=== PATIENT | female | born 1930 | race Caucasian/White ===

== ENCOUNTER 2016-07-02 15:26 | Emergency (ER) | payer MEDICARE, OTHER ==
--- NOTE | ~2016-07-02 | ER ---
PATIENT'S NAME: TORREI FERRELL [facility] AGE: 86 Y [address] ROOM: [place] [address] LOCATION: [facility] ADMIT DATE: 07/02/2016 ER/Outpatient Report DISCHARGE DATE: 07/02/2016 FAMILY PHYSICIAN: Geoff Patterson MD ATTENDING PHYSICIAN: Elfego Robert Time of Arrival: 1526 hours. Time of Evaluation: 1545 hours. CHIEF COMPLAINT: Left leg injury from ground level fall. HISTORY OF PRESENT ILLNESS: This is an 86-year-old female, who presents to the ER, who states that she was getting up out of a chair, she tripped and fell, and landed onto her left side. She states she felt like she maybe twisted her ankle and she is having some pain on the lateral portion of her ankle. She had a little bit in her left knee, but that has since resolved and now also has some pain in her left hip and lateral side of her thigh. She has noticed a large hematoma grow in the thigh area. She denies hitting her head. She has no neck or back pain. No other problems at this time. ALLERGIES: PLEASE SEE MEDICATION LIST NURSE'S NOTES. MEDICATIONS: Please see medication list nurse's notes. PAST MEDICAL HISTORY: She has a history of lymphoma. SOCIAL HISTORY: Denies smoking, drug, or alcohol use. REVIEW OF SYSTEMS: A 10-point review of systems was completed and was negative with the exception of those discussed in the HPI. PHYSICAL EXAMINATION: VITAL SIGNS: Weight 47 kg taken, blood pressure is 128/62, pulse 90, respirations 20, temperature 96.3 degrees tympanically, and saturations 98% on room air. [place] Coma score is 15. GENERAL: Alert, calm, well-developed, 86-year-old, in no acute distress. The patient was able to stand from the wheelchair pivot and sit in the bed with no difficulties. PATIENT'S NAME: TORRIE FERRELL [facility] AGE: 86 Y [address] ROOM: [place] [address] LOCATION: [facility] ADMIT DATE: 07/02/2016 ER/Outpatient Report DISCHARGE DATE: 07/02/2016 FAMILY PHYSICIAN: Geoff Patterson MD ATTENDING PHYSICIAN: Elfego Robert HEENT: Head normocephalic. She does display moist mucous membranes. LUNGS: Clear to auscultation bilaterally. No wheeze or crackles. Normal respiratory effort. HEART: Regular rate and rhythm. No lifts, thrills, or murmurs. EXTREMITIES: No clubbing or cyanosis. She does have a very large hematoma to the left lateral thigh, down her thigh, and it extends up into her hip area. She does have ecchymosis over that area as well and it is tender to palpation. She has no tenderness over her pelvic region with palpation. She does have good range of motion of her left knee. She has some swelling noted to her left knee and into her left ankle as well. There is some ecchymosis noted to the lateral aspect of her ankle. She has a good pulse in her left lower extremity. She also has some tenderness into the lateral aspect of her left foot. LABORATORY DATA AND X-RAYS: None were done. X-rays of the left hip and pelvis were done, left ankle and left foot were done. The only abnormality that we could see was a small chip fracture in her left foot. IMPRESSION: 1. Large hematoma to the lateral aspect of her left thigh. 2. Contusion to left knee. 3. Left ankle pain. 4. Small chip fracture noted to the left foot. ASSESSMENT AND PLAN: I did discuss the patient with Dr. Robert. The patient will be dismissed to home with a Cam walking boot. I advised her to use. We also applied an Cruz wrap to her hematoma on her thigh for comfort and compression. She needs to ice all the sore areas. We advised her to ambulate with her walker and to be very vigilant on getting up and sitting down with the Cam walking boot on. The patient needs to follow up with her primary care physician early next week or sooner if any of her symptoms worsen. The patient understands and agrees with care. MANISH LEIVA PA-C FOR DO [facility]/danial /[id number] d: t: 07/10/16 1222, OUTPATIENT REPORT
[~2016-07-02 15:26] MED LIST: AMOXICILLIN500 M1 PO; ARTHRITIS PAIN650 MG PO; ASPIRIN EC81 MG PO; BIOTIN1 M1 PO; BIPAP INH; CALCIUM + VITA1 EACH PO; CENTRUM SILVER1 TAB PO; DELTASONE1 MG PO; FISH OIL1000 MG PO; FORTEO 6001 PEN/600 SUB-Q; ICAPS TABLET1 EACH PO; LEVOTHROID(SYN75 MCG PO; NEURONTIN300 MG PO; NORCO 5-325 MG1 TAB PO; ORENCIA125 MG/1 M IV; PEPCID COMPLET1 EACH PO; PEPCID20 MG PO; VITAMIN D-32000 UNI1 PO
== END 2016-07-02 17:25 | disposition disaster alternative care site (69) ==
LOC: GACC 15:26
DX: S92.902A Unspecified fracture of left foot, initial encounter for closed fracture (principal); S70.12XA Contusion of left thigh, initial encounter; S80.02XA Contusion of left knee, initial encounter; M25.572 Pain in left ankle and joints of left foot; W07.XXXA Fall from chair, initial encounter

== ENCOUNTER → 2016-07-14 | Outpatient (CLI) | payer MEDICARE, OTHER | END | disposition disaster alternative care site (69) | LOC: GRAD 10:44 | DX: S22.081D Stable burst fracture of T11-T12 vertebra, subsequent encounter for fracture with routine healing (principal); Z98.890 Other specified postprocedural states; M47.814 Spondylosis without myelopathy or radiculopathy, thoracic region; M47.816 Spondylosis without myelopathy or radiculopathy, lumbar region; M41.84 Other forms of scoliosis, thoracic region; M41.86 Other forms of scoliosis, lumbar region ==

== ENCOUNTER → 2016-09-12 | Outpatient (CLI) | payer MEDICARE, OTHER | END | disposition disaster alternative care site (69) | LOC: GBCOE 11:09 | DX: Z12.31 Encounter for screening mammogram for malignant neoplasm of breast (principal) | CPT/HCPCS: G0202 ==